=== PATIENT | female | born 1995 | race Caucasian/White ===

== ENCOUNTER 2018-09-26 14:51 | Emergency (ER) | payer BC ==
--- NOTE | 2018-09-26 17:06 | EDPHYS ---
Physician Documentation [facility] Name: Melanie Kim Age: 23 yrs Sex: Female : 1995 Arrival Date: 09/26/2018 Time: 14:53 Bed 5 Private MD: Joey Palmer H ED Physician Edilson Mckenzie HPI: 09/26 17:01 This 23 yrs old Female presents to ER via Ambulatory with complaints of VAG rn BLEEDING. 17:01 The patient presents with vaginal bleeding that is. Onset: The symptoms/episode rn began/occurred yesterday. Modifying factors: The symptoms are alleviated by nothing, the symptoms are aggravated by walking. Associated signs and symptoms: Pertinent positives: vaginal bleeding, Pertinent negatives: vaginal discharge. Severity of symptoms: At their worst the symptoms were moderate, in the emergency department the symptoms have improved. The patient has not experienced similar symptoms in the past. The patient has been recently seen by a physician:. Seen last night at [place] [facility], states had UPT/UA/CBC, all looked ok, reports told to f/u with [employer], did not make an appt, still bleeding today so came over here. NO syncope/chest pain/sob. + intermittent abd cramping. NO current pain. Reports bleeds more when standing/walking. . PHYSICAL THERAPY RESIDENT: 15:12 LMP 09/02/2018 hb Historical: - Allergies: 15:12 No Known Allergies; hb - Home Meds: 15:12 None [Active]; hb - PMHx: 15:12 None; hb - PSHx: 15:12 None; hb - Immunization history:: Adult Immunizations up to date. - Social history:: Smoking status: Patient uses tobacco products, smokes one-half pack cigarettes per day. - Ebola Screening: : No symptoms or risks identified at this time. - Family history:: not pertinent. - Hospitalizations: : No recent hospitalization is reported. ROS: 17:01 Constitutional: Negative for fever, chills, and weight loss, Eyes: Negative for injury, rn pain, redness, and discharge, Cardiovascular: Negative for chest pain, palpitations, and edema, Respiratory: Negative for shortness of breath, cough, wheezing, and pleuritic chest pain, Abdomen/GI: Negative for nausea, vomiting, diarrhea, and constipation, : Negative for injury, discharge, and swelling, MS/Extremity: Negative for injury and deformity, Skin: Negative for injury, rash, and discoloration, Neuro: Negative for headache, weakness, numbness, tingling, and seizure. Exam: 17:01 Constitutional: This is a well developed, well nourished patient who is awake, alert, rn and in no acute distress. Walking to room without difficulty. Head/Face: Normocephalic, atraumatic. Eyes: Pupils equal round and reactive to light, extra-ocular motions intact. Lids and lashes normal. Conjunctiva and sclera are non-icteric and not injected. Cornea within normal limits. Periorbital areas with no swelling, redness, or edema. Abdomen/GI: Soft, non-tender, with normal bowel sounds. No distension or tympany. No guarding or rebound. No evidence of tenderness throughout. Skin: Warm, dry with normal turgor. Normal color with no rashes, no lesions, and no evidence of cellulitis. MS/ Extremity: Pulses equal, no cyanosis. Neurovascular intact. Full, normal range of motion. Equal circumference. Neuro: Awake and alert, GCS 15, oriented to person, place, time, and situation. Cranial nerves II-XII grossly intact. Motor strength 5/5 in all extremities. Sensory grossly intact. Cerebellar exam normal. Normal gait. Vital Signs: 15:10 BP 120 / 81; Pulse 113; Resp 16; Temp 98.1; Pulse Ox 100% on R/A; Pain 6/10; hb 16:30 BP 124 / 77; Pulse 90; Resp 17; Temp 98.1; Pulse Ox 99% on R/A; Pain 6/10; sg MDM: 16:17 Patient medically screened. rn 17:01 Differential diagnosis: menometrorrhagia, menorrhea, nonspecific abdominal pain, rn urinary tract infection. Data reviewed: vital signs, nurses notes, lab test result(s), urinalysis, UPT: and as a result, I will discharge patient. Counseling: I had a detailed discussion with the patient and/or guardian regarding: the historical points, exam findings, and any diagnostic results supporting the discharge/admit diagnosis, lab results, the need for outpatient follow up, to return to the emergency department if symptoms worsen or persist or if there are any questions or concerns that arise at home. Special discussion: I discussed with the patient/guardian in detail that at this point there is no indication for admission to the hospital. It is understood, however, that if the symptoms persist or worsen the patient needs to return immediately for re-evaluation. Based on the history and exam findings, there is no indication for further emergent testing or inpatient evaluation. I discussed with the patient/guardian the need to see the OB Gyne specialist for further evaluation of the symptoms. ED course: Patient well appearing, no sob/syncope/near syncope, more concerned because still bleeding, just evaluated last night, not any worse, needs to f/u with [employer], also, patient reports has never had a pap smear or other gynecological exam. Urged her to f/u with [employer] and return if worsens. UA/UPT neg. . 09/26 16:24 Order name: Urine Microscopic Only rn 09/26 16:48 Order name: Urine Dipstick--Ancillary (enter results) ss 09/26 16:24 Order name: Urine Dipstick-Ancillary (obtain specimen); Complete Time: 16:31 rn 09/26 16:24 Order name: Urine Test (obtain specimen); Complete Time: 16:31 rn 09/26 16:48 Order name: Urine --Ancillary (enter results) ss Administered Medications: No medications were administered Disposition: 09/26/18 17:06 Discharged to Home. Impression: Other abnormal uterine and vaginal bleeding. - Condition is Stable. - Discharge Instructions: Menorrhagia. - Medication Reconciliation Form, Thank You Letter, Antibiotic Education, Prescription Opioid Use, Work release form, Family Work Release form. - Follow up: Private Physician; When: As needed; Reason: Recheck today's complaints, Re-evaluation by your physician. - Problem is new. - Symptoms have improved. Signatures: Dispatcher [employer] EDMS Edilson Mckenzie MD MD rn Smirch, Shelby, RN RN ss Baxter, Heather, RN RN Corrections: (The following items were deleted from the chart) 17:24 17:06 09/26/2018 17:06 Discharged to Home. Impression: Other abnormal uterine and ss vaginal bleeding. Condition is Stable. Forms are Medication Reconciliation Form, Thank You Letter, Antibiotic Education, Prescription Opioid Use. Follow up: Private Physician; When: As needed; Reason: Recheck today's complaints, Re-evaluation by your physician. Problem is new. Symptoms have improved. rn
--- NOTE | 2018-09-26 17:06 | ER ---
Nurse's Notes [facility] Name: Melanie Kim Age: 23 yrs Sex: Female : 1995 Arrival Date: 09/26/2018 Time: 14:53 Bed 5 Private MD: Joey Palmer H Diagnosis: Other abnormal uterine and vaginal bleeding Presentation: 09/26 15:10 Presenting complaint: Intermittent heavy vaginal bleeding and lower abdominal cramping hb since yesterday. LMP 09/02/18. Transition of care: patient was not received from another setting of care. Onset of symptoms was September 25, 2018. Risk Assessment: Do you want to hurt yourself or someone else? Patient reports no desire to harm self or others. Care prior to arrival: None. 15:10 Method Of Arrival: Ambulatory hb 15:10 Acuity: HIEN 3 hb 17:20 Initial Sepsis Screen: Does the patient meet any 2 criteria? No. Patient's initial sg sepsis screen is negative. Does the patient have a suspected source of infection? No. Patient's initial sepsis screen is negative. 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 - Social history:: Smoking status: Patient uses tobacco products, smokes one-half pack cigarettes per day. - Ebola Screening: : No symptoms or risks identified at this time. - Family history:: not pertinent. - Hospitalizations: : No recent hospitalization is reported. Screenin:20 Abuse screen: Denies threats or abuse. Denies injuries from another. Nutritional sg screening: No deficits noted. Tuberculosis screening: No symptoms or risk factors identified. Never had TB. Fall Risk None identified. Assessment: 16:30 Reassessment: Patient appears in no apparent distress at this time. Patient and/or sg family updated on plan of care and expected duration. Pain level reassessed. Patient is alert, oriented x 3, equal unlabored respirations, skin warm/dry/pink. pt family with pt at this jose alfredo. 17:20 General: Appears in no apparent distress. comfortable, well groomed, well developed, sg well nourished, Behavior is calm, cooperative, appropriate for age. Pain: Denies pain. Neuro: Level of Consciousness is awake, alert, obeys commands, Oriented to person, place, time, situation, Shock Absorber Installer are equal bilaterally Moves all extremities. Full function Gait is steady, Speech is normal, Facial symmetry appears normal. Cardiovascular: Capillary refill is brisk in bilateral fingers Patient's skin is warm and dry. Chest pain is denied. Respiratory: Airway is patent Respiratory effort is even, unlabored, Respiratory pattern is regular, symmetrical, Denies cough, shortness of breath labored breathing, pain with respiration, pain with cough, pain with movement. GI: No signs and/or symptoms were reported involving the gastrointestinal system. : Reports vaginal bleeding that is bright red, light flow. EENT: No signs and/or symptoms were reported regarding the EENT system. Derm: Skin is pink, warm \T\ dry. Musculoskeletal: No signs and/or symptoms reported regarding the musculoskeletal system. Vital Signs: 15:10 BP 120 / 81; Pulse 113; Resp 16; Temp 98.1; Pulse Ox 100% on R/A; Pain 6/10; hb 16:30 BP 124 / 77; Pulse 90; Resp 17; Temp 98.1; Pulse Ox 99% on R/A; Pain 6/10; sg ED Course: 14:53 Patient arrived in ED. ag5 14:54 Joey Palmer DO is Private Physician. ag5 15:12 Triage completed. hb 15:12 Arm band placed on right wrist. hb 15:30 Patient has correct armband on for positive identification. Bed in low position. Call sg light in reach. Side rails up X2. monitoring analyst on. Pulse ox on. NIBP on. Head of bed elevated. 16:17 Edilson Mckenzie MD is Attending Physician. rn 16:23 Marii Mars, RN is Primary Nurse. sv 16:52 Osiel Marcos, ISAI is Primary Nurse. sg 17:25 No provider procedures requiring assistance completed. Patient did not have IV access sg during this emergency room visit. Administered Medications: No medications were administered Outcome: 17:06 Discharge ordered by . rn 17:20 Discharged to home ambulatory, with family. sg 17:20 Condition: good 17:20 Discharge instructions given to patient, family, Instructed on discharge instructions, follow up and referral plans. safety practices, Demonstrated understanding of instructions, follow-up care. 17:24 Patient left the ED. ss Signatures: Marii Mars RN RN sv Gay, Steven, RN RN sg Nieto, Roman, MD MD rn Smirch, Shelby, RN RN ss Baxter, Heather, RN RN hb Gaskin, Juarez ag5
[2018-09-26 17:33] LABS: Urine RBC 20-50 /HPF (NONE SEEN)
[2018-09-26 17:34] LABS: Urine Amorphous Sediment 3+ /HPF (NONE SEEN); Urine Bacteria <20 /HPF (<20); Urine Culture Reflex Order NOT NEEDED
[2018-09-26 19:23] LABS: Urine Blood 3+ (NEG); Urine Glucose NEGATIVE (NEG); Urine Protein NEGATIVE (NEG)
== END 2018-09-26 17:24 | disposition home or self-care (01) ==
LOC: ER 14:51
DX: N93.8 Other specified abnormal uterine and vaginal bleeding (principal)
CPT/HCPCS: 81003; 81015; 81025; 99284